=== PATIENT | male | born 2000 | race Caucasian/White ===

== ENCOUNTER 2024-07-19 19:06 | Emergency (ER) | payer BC, SELFPAY ==
[2024-07-19 19:06] VITALS: BMI 27.4
--- NOTE | 2024-07-19 19:38 | XR_ITS ---
Examination: Right elbow 3 views Technique: Elbow AP, oblique, lateral 3 views Exam date and time: July 19, 2024 at 1949 hrs. Indications: Patient fell today with injury to the elbow, elbow pain. Findings: No acute fracture No dislocation No foreign body Impression: No acute fracture.
--- NOTE | 2024-07-19 19:38 | XR_ITS ---
Examination: Wrist, right 3 views Technique: Wrist AP, oblique, lateral 3 views Date and time of exam: Hours Indications: Patient fell from a ladder today with injury of the wrist, wrist pain. Findings: No fracture or dislocation No foreign body Impression: No fracture or dislocation
--- NOTE | 2024-07-19 19:39 | PD.EDRME ---
Rapid Medical Screening Exam RME Arrival date/time: 07/19/24 19:06 23 year old male present to ED for c/o wrist/elbow injury today I have greeted and performed a focused initial assessment of this patient. A comprehensive ED assessment and evaluation of the patient, analysis of all test results, and completion of the medical decision making process will be conducted by additional ED providers. Chief Complaint: Extremity Injury, Upper
[2024-07-19 19:41] VITALS: BP 130/80; PULSE 88; RESP 16; TEMP 36.9; O2SAT 96
--- NOTE | 2024-07-19 20:14 | EDNOTE_ITS ---
Upper Extremity Injury RME/HPI General Chief Complaint: Extremity Injury, Upper Stated Complaint: RT WRIST PAIN Time Seen by Provider: 07/19/24 20:14 Arrival date/time: 07/19/24 19:06 23 year old male present to emergency room with c/o of right arm injury today. pt report pulling up [employer] lights when he fell off ladder. no head/neck injury no loc/syncope LOCATION: wrist/elbow SEVERITY: Symptoms are described as being severe with limitations on activities of daily living QUALITY: Symptoms are described as being dull or achy CONTEXT: fall off ladder while putting up [employer] lights. DURATION/TIMING: The symptoms started approximately 1 day ago and have been constant this then. ASSOCIATED SYMPTOMS: The patient is unable to identify any other associated symptoms. MODIFYING FACTORS: The patient is unable to identify any alleviating or aggravating symptoms. PERTINENT ROS: no fevers, no headache, no neck or chest pain, no unexplained nausea or vomiting, no focal neurological deficits no blood thinner uses REVIEW OF SYSTEMS: See History of Present Illness - with the exception of those mentioned in the history of present illness, all other systems reviewed and reported as negative GENERAL: In general the patient is awake, interactive, in an emergency department gurney. HEAD/EYES/EARS/NOSE/THROAT: normo-cephalic, atraumatic, mucus membranes are moist, anicteric, palpebral conjunctiva is pink, trachea is midline. CARDIOVASCULAR: regular rate and regular rhythm, no murmurs, heart sounds are not distant, strong pulses in all four extremities that are equal and symmetric bilateral upper and lower extremities, normal capillary refill. NEUROLOGICAL: cranio-facial features are symmetric, moves all four extremities equally without obvious limitations or weakness. EXTREMITY: right proximal wrist and lateral elbow tenderness, decrease range of motion due to pain. no tenderness to palpation over the long bones or large joints of the bilateral lower extremities, no joint swelling, no joint erythema, no signs of trauma, no unilateral leg swelling and no peripheral edema. SKIN: warm, dry, well-perfused, no jaundice, no rash, no telangiectasias or petechia. PSYCH: calm, cooperative, no evidence of psychosis or agitation RME / HPI RME / HPI narrative: 07/19/24 19:06 23 year old male present to ED for c/o wrist/elbow injury today I have greeted and performed a focused initial assessment of this patient. A comprehensive ED assessment and evaluation of the patient, analysis of all test results, and completion of the medical decision making process will be conducted by additional ED providers. Related Data Previous Rx's ?Medication ?Instructions ?Recorded ibuprofen 600 mg tablet 600 mg PO Q6HR PRN PAIN #30 tabs 12/31/14 Allergies Allergy/AdvReac Type Severity Reaction Status Date / Time No Known Allergies Allergy Verified 07/19/24 19:08 Course Course Course Narrative: Plan xray elbow/wrist to rule out fracture Quality Measures none Orders Category Date Time Status Splint / Immobilizer STAT Care 07/19/24 20:40 Active XR elbow comp RT min 3V Stat Exams 07/19/24 19:38 Completed XR wrist comp RT min 3V Stat Exams 07/19/24 19:38 Completed Vital Signs Vital signs: Vital Signs Temperature 98.5 F 07/19/24 19:41 Pulse Rate 88 07/19/24 19:41 Respiratory Rate 16 07/19/24 19:41 Blood Pressure 130/80 07/19/24 19:41 Pulse Oximetry (%) 96 07/19/24 19:41 Oxygen Delivery Method Room Air 07/19/24 19:41 Extremity Injury Patient data External records reviewed:: None Clinical information provided by:: patient Social determinants that could affect healthcare access:: none Patient has the following chronic illnesses:: none How is presenting disease/condition affected by chronic disease/condition?: no chronic disease Evaluation data The following diagnostics were reviewed and interpreted by me:: radiology exam(s) Lab and/or radiology exams considered but not ordered:: none Interpretation Summary: xray wrist negative xray elbow negative Medications / Prescriptions Medications or Prescriptions considered but not ordered:: none Medication administrations:: none Consultations Consultation(s) initiated? (list below): No Diagnosis Upper Extremity Injury Differential Diagnosis: sprain and strain of wrist, fracture of wrist, Colles' fracture, fracture of hand and other (elbow fracture/contusion ) Most likely diagnosis given after review of the tests above:: wrist sprain Admission Indicated Admission indicated?: not indicated Admission Request Was there a request for admission?: No Disposition Plan Disposition Plan: Discharge Discharge Attestation Discharge Attestation: The patient and all family members were given an opportunity to ask questions and understood the discharge instructions. Discharge instructions specifically effects, indications for sooner follow up or return to the emergency department, and the expected course of current diagnosis. Patient condition: Stable Discharge Plan Plan Patient Disposition: HOME (Self Care) Health Concerns: Follow with PMD as directed Take tylenol or motrin as need Return to ED if sx worsen Prescriptions/Referrals Prescriptions/Med Rec: No Action ibuprofen 600 MG tablet 600 mg PO Q6HR PRN (Reason: PAIN) Qty: 30 0RF Referrals: No Primary/Family,Physician [Primary Care Provider] - In 1 week Problem List Clinical Impression: Sprain of right wrist Patient/Caregiver Discharge Instructions Education Materials: ED Wrist Sprain Print Language: [place] Stand Alone Forms: [facility] Award Info., Patient Portal Info Letter
== END 2024-07-19 21:07 | disposition home or self-care (01) ==
PROVIDERS: Emergency Provider Emergency Medicine
DX: S63.501A Unspecified sprain of right wrist, initial encounter (principal); S59.901A Unspecified injury of right elbow, initial encounter; W11.XXXA Fall on and from ladder, initial encounter; Y93.89 Activity, other specified
CPT/HCPCS: 73080; 73110; 99283